=== PATIENT | male | born 1955 | race Caucasian/White ===

== ENCOUNTER 2021-03-12 11:46 | Emergency (ER) | payer BC ==
[~2021-03-12] VITALS: Ht 172.7 cm; Wt 86.4 kg
[2021-03-12] MEDS ORDERED: [UNRECOGNIZED DRUG - OTHER] IV ONE ×2 (12:00→12:55)
[2021-03-12 12:22] VITALS: BP 133/93
[2021-03-12] MEDS ORDERED: PRED20TA PO (12:51)
[2021-03-12] MEDS ORDERED: ALBU6.7H9 INH (12:51)
== END 2021-03-12 16:08 | disposition home or self-care (01) ==
LOC: ER 11:47
DX: U07.1 COVID-19 (principal); E78.00 Pure hypercholesterolemia, unspecified; I10 Essential (primary) hypertension; F17.200 Nicotine dependence, unspecified, uncomplicated; Z72.89 Other problems related to lifestyle; Z79.899 Other long term (current) drug therapy
CPT/HCPCS: 71045; 99283; M0243; Q0243

== ENCOUNTER 2024-09-09 09:30 | Outpatient (CLI) | payer MEDICARE ==
[~2024-09-09 09:30] MED LIST: ALBU6.7H14 INH; iohexol 350 MG/ML 50ML vial IV ONE; iohexol 350MG/ML 100ml bottle IV ONE
== END 2024-09-09 23:59 | disposition home or self-care (01) ==
LOC: RAD 09:30
PROVIDERS: ATTEND Internal Medicine Interventional Cardiology
DX: I71.43 Infrarenal abdominal aortic aneurysm, without rupture (principal); I74.5 Embolism and thrombosis of iliac artery; M43.8X4 Other specified deforming dorsopathies, thoracic region; M43.16 Spondylolisthesis, lumbar region; M47.817 Spondylosis without myelopathy or radiculopathy, lumbosacral region
CPT/HCPCS: 75635; Q9967

== ENCOUNTER 2025-03-31 08:35 | Outpatient (CLI) | payer MEDICARE ==
[~2025-03-31 08:35] MED LIST changes: -iohexol 350 MG/ML 50ML vial IV ONE; -iohexol 350MG/ML 100ml bottle IV ONE
--- NOTE | 2025-03-31 12:26 | VASCULAR REPORT ---
[facility] Vascular Department 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 : PENDING [facility], Preliminary Report The above named patient was referred for a NON-INVASIVE ABDOMINAL AORTA EVALUATION. The evaluation includes grayscale imaging, color flow Doppler and spectral analysis of the abdominal aorta and iliac arteries. Patient OUT-PATIENT InaRSation's S/P aortao-bifemoral bypass and aortic endarterectomy 02/25/2025 Duplex Results A/P Transverse Longitudinal Proximal Aorta 2.53cm Mid Aorta 2.45cm 2.64cm Distal Aorta 2.40cm 2.21cm Rt. Common Iliac 1.00cm 1.61cm Arterummon Iliac 0.8cm 1.1cm Artery Doppler Velocity Waveform Aorta Mid. 32.0 cm/sec Distal Aorta 48.1 cm/sec Rt. Common Iliac Artery 56.4 cm/sec Lt. Common Iliac Artery 50.6 cm/sec Impression: TDE due to body habitus and incision/scar tissue. Aorto-bifemoral bypass graft appears patent. Waveforms appear multiphasic with boaderline monophasic components. Imaging reveals a patent Abdominal Aorta. No evidence of significant stenosis and/or occlusion. No evidence of Abdominal Aortic Anuerysm visualized.
--- NOTE | 2025-03-31 12:28 | VASCULAR REPORT ---
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 : PENDING [facility], Preliminary Report The above named patient was referred for a NON-INVASIVE ABDOMINAL AORTA EVALUATION. The evaluation includes grayscale imaging, color flow Doppler and spectral analysis of the abdominal aorta and iliac arteries. Patient OUT-PATIENT InaRSation's S/P aortao-bifemoral bypass and aortic endarterectomy 02/25/2025 Duplex Results A/P Transverse Longitudinal Proximal Aorta 2.53cm Mid Aorta 2.45cm 2.64cm Distal Aorta 2.40cm 2.21cm Rt. Common Iliac 1.00cm 1.61cm Arterummon Iliac 0.8cm 1.1cm Artery Doppler Velocity Waveform Aorta Mid. 32.0 cm/sec Distal Aorta 48.1 cm/sec Rt. Common Iliac Artery 56.4 cm/sec Lt. Common Iliac Artery 50.6 cm/sec Impression: TDE due to body habitus and incision/scar tissue. Aorto-bifemoral bypass graft appears patent. Waveforms appear multiphasic with boaderline monophasic components. Imaging reveals a patent Abdominal Aorta. No evidence of significant stenosis and/or occlusion. No evidence of Abdominal Aortic Anuerysm visualized.
--- NOTE | 2025-03-31 12:38 | VASCULAR REPORT ---
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 : PENDING [facility], Preliminary Report The above named patient was referred for a PHYSIOLOGIC ARTERIAL DOPPLER EVALUATION. The evaluation includes blood pressures, ankle brachial indices (KAREN), and segmental Doppler waveform analysis at rest and post exercise when applicable. Toe brachial indices (TBI) taken when necessary. Patient OUT-PATIENT Egeation: Ankle to Brachial Index Indieations Eval s/p Aortobifem BPG srugery x4 weeks ago Risk Factors History of PAD: Bilaterally Pressures/Indices Right AB Left AB Brachial 180mmHg Brachial 150mmHg Ankle(PT) 160mmHg 0.89 Ankle(PT) 150mmHg 0.83 Ankle(DP) 130mmHg Ankle(DP) 130mmHg Impression: Right ankle brachial index: 0.89 Left ankle brachial index: 0.83 >20mmHg difference in brachial pressures. Right >Left.
== END 2025-03-31 23:59 | disposition home or self-care (01) ==
LOC: RAD 08:35
PROVIDERS: ATTEND Physician Assistant Surgical
DX: I70.203 Unspecified atherosclerosis of native arteries of extremities, bilateral legs (principal); I71.40 Abdominal aortic aneurysm, without rupture, unspecified; L90.5 Scar conditions and fibrosis of skin; Z95.828 Presence of other vascular implants and grafts
CPT/HCPCS: 93922; 93925; 93978